=== PATIENT | female | born 1985 | race Caucasian/White ===

== ENCOUNTER 2018-03-22 13:48 | Inpatient (IN) | payer OTHER ==
[2018-03-22] MEDS: Lactated Ringer's 1,000 ML IV SCH ×2 (14:00→17:15)
[2018-03-22] MEDS ORDERED: Butorphanol Tartrate 1 MG/ML VIAL SLOW IVP SCH (15:00)
[2018-03-22 15:17] VITALS: BMI 56.3
[2018-03-22] MEDS ORDERED: Butorphanol Tartrate 1 MG/ML VIAL ONE (15:19)
[2018-03-22 15:26] LABS: Hemoglobin 13.4 g/dL (12.0-16.0); Mean Corpuscular HGB CONC 34.6 g/dL (32.0-36.0); Mean Corpuscular Hemoglobin 30.7 pg (27.0-31.0); Mean Corpuscular Volume 88.7 fL (78.0-98.0); Mean Platelet Volume 7.7 fL (7.4-10.4); Platelet Count 289 thou/uL (130-400); RBC Distribution Width 12.6 % (11.5-14.5); Red Blood Cell (RBC) Count 4.38 mill/uL (4.20-5.40); White Blood Cell (WBC) Count 14.5 thou/uL (4.8-10.8)
[2018-03-22] MEDS ORDERED: Fentanyl 4 mcg/Bup 0.1% Cadd 0 ML ONE (15:35)
[2018-03-22] MEDS ORDERED: Fentanyl 4 mcg/Bup 0.1% Cadd 100 ML ONE (15:37)
--- NOTE | 2018-03-22 16:44 | PDOC.EVN ---
Event Note - Event Note Event Note: Asked to place FSE by labor RN. Epidural just placed. SVE /-1. AROM performed, clear fluid seen. FSE placed w/o difficulty. Dr. Salazar notified.
[2018-03-22] MEDS ORDERED: Promethazine HCl 25 MG/ML VIAL IM PRN (16:55)
[2018-03-22] MEDS ORDERED: Ibuprofen 800 MG TAB PO PRN (16:55)
[2018-03-22] MEDS ORDERED: Acetaminophen 500 MG TAB PO PRN (16:55)
[2018-03-22] MEDS ORDERED: Docusate 100 MG CAP PO PRN (16:55)
[2018-03-22] MEDS ORDERED: Butorphanol Tartrate 1 MG/ML VIAL SLOW IVP PRN (16:55)
[2018-03-22] MEDS ORDERED: Ondansetron PF 4 MG/2 ML Vial IVP PRN ×2 (16:55→19:33)
[2018-03-22] MEDS ORDERED: Diphenoxylate HCl/Atropine Tablet PO PRN ×2 (16:55)
[2018-03-22] MEDS ORDERED: Misoprostol 200 MCG TAB PR PRN (16:55)
[2018-03-22] MEDS ORDERED: Lidocaine 1% (PF) 30 ML VIAL SC PRN (16:55)
[2018-03-22] MEDS ORDERED: NS / Oxytocin 40 units/1000ml 1,000 ML IV PRN (16:55)
[2018-03-22] MEDS ORDERED: HYDROcodone/Acetaminophen 5/325 mg Tablet PO PRN ×2 (16:55)
[2018-03-22] MEDS ORDERED: NS w/ Oxytocin 10 units 500 ML IV SCH (17:00)
[2018-03-22 17:40] LABS: HBSAg Index 0.22 S/CO (0-0.99); Hep B Surf Ag Non-Reactive S/CO (NonReactive); Syphilis Antibody Nonreactive (Nonreactive); Syphilis Antibody Index 0.03 S/CO (<1.00 Non-Reactive)
[2018-03-22] MEDS ORDERED: Lanolin Ointment 7 GM TUBE TOP PRN (19:33)
[2018-03-22] MEDS ORDERED: Acetaminophen/Codeine 30-300mg Tablet PO PRN (19:33)
[2018-03-22] MEDS ORDERED: Milk Of Magnesia 30 ML UDCUP PO PRN (19:33)
[2018-03-22] MEDS ORDERED: Zolpidem Tartrate 5 MG TAB PO PRN (19:33)
[2018-03-22] MEDS ORDERED: Benzocaine/Menthol 20-0.5% 60 ML CAN TOP PRN (19:33)
[2018-03-22] MEDS ORDERED: Misoprostol 200 MCG TAB VAG PRN (19:33)
[2018-03-22] MEDS ORDERED: Bisacodyl 10 MG SUPP PR PRN (19:33)
[2018-03-22] MEDS ORDERED: NS / Oxytocin 40 units/1000ml 1,000 ML IV SCH (19:45)
[2018-03-23] MEDS: Ibuprofen 800 MG TAB PO SCH ×4 (04:20→20:10)
[2018-03-23] MEDS: Docusate Calcium (SURFAK) 240 MG CAP PO SCH ×3 (04:21→20:11)
[2018-03-23 06:49] LABS: Hemoglobin 11.6 g/dL (12.0-16.0); Mean Corpuscular Hemoglobin 30.6 pg (27.0-31.0); Mean Platelet Volume 7.4 fL (7.4-10.4); Platelet Count 261 thou/uL (130-400); RBC Distribution Width 12.6 % (11.5-14.5); Red Blood Cell (RBC) Count 3.77 mill/uL (4.20-5.40); White Blood Cell (WBC) Count 13.8 thou/uL (4.8-10.8)
[2018-03-23] MEDS ORDERED: Adacel (T-DAP) 0.5 ML VIAL IM ONE (09:00)
[2018-03-23] MEDS: Ferrous Sulfate 325 MG TAB PO SCH ×2 (09:32→17:41)
[2018-03-23] MEDS: Prenatal Vitamin 1 TAB PO SCH (09:33)
[2018-03-23] MEDS: Acetaminophen/Codeine 30-300mg Tablet PO PRN (20:21)
[2018-03-24] MEDS: Acetaminophen/Codeine 30-300mg Tablet PO PRN ×2 (03:46→08:03)
[2018-03-24] MEDS: Ibuprofen 800 MG TAB PO SCH (03:47)
[2018-03-24] MEDS: Prenatal Vitamin 1 TAB PO SCH (08:02)
[2018-03-24] MEDS: Docusate Calcium (SURFAK) 240 MG CAP PO SCH (08:03)
[2018-03-24] MEDS: Ferrous Sulfate 325 MG TAB PO SCH (08:03)
[2018-03-24 08:18] VITALS: BP 87/50; TEMP 97.8
== END 2018-03-24 13:00 | disposition home or self-care (01) | DRG 807 ==
LOC: L&D/OP 13:48 → L&D 15:32 → 3SW 21:53
PROVIDERS: ADMIT Obstetrics & Gynecology; ATTEND Obstetrics & Gynecology
PROC: 10E0XZZ Delivery of Products of Conception, External Approach (ICD-10-PCS; principal; 2018-03-22)
PROC: 0KQM0ZZ Repair Perineum Muscle, Open Approach (ICD-10-PCS; 2018-03-22)
DX: O99.214 Obesity complicating childbirth (principal); Z37.0 Single live birth; E66.01 Morbid (severe) obesity due to excess calories; Z3A.39 39 weeks gestation of pregnancy; O76 Abnormality in fetal heart rate and rhythm complicating labor and delivery; O69.81X0 Labor and delivery complicated by cord around neck, without compression, not applicable or unspecified; O70.1 Second degree perineal laceration during delivery
CPT/HCPCS: 36415; 51702; 85027; 86780; 86850; 86900; 86901; 87340; 99285; J0595; J2001

== ENCOUNTER 2020-08-10 03:54 | Inpatient (IN) | payer BC ==
[2020-08-10 04:02] VITALS: BMI 30.8
[2020-08-10] MEDS ORDERED: HYDROcodone/Acetaminophen 5/325 mg Tablet PO PRN (04:28)
[2020-08-10] MEDS ORDERED: Ondansetron PF 4 MG/2 ML Vial IVP PRN (04:30)
[2020-08-10] MEDS ORDERED: Ondansetron ODT 4 MG TAB SL PRN (04:30)
[2020-08-10] MEDS ORDERED: Ondansetron ORAL SOLN. 4 MG/5 ML UDCUP PO PRN (05:02)
[2020-08-10] MEDS: Morphine 4 MG/ML VIAL SLOW IVP PRN ×4 (05:17→21:00)
[2020-08-10] MEDS: Sodium Chloride 0.9% 1,000 ML IV SCH ×4 (05:27→15:55)
[2020-08-10 08:39] LABS: #Eosinphils 0.1 thou/uL (0.0-0.7); #Lymphocytes 1.2 thou/uL (1.20-3.40); #Monocytes 0.3 thou/uL (0.11-0.59); #Neutrophils 3.4 thou/uL (1.40-6.50); %Basophils 0.4 % (0.0-1.0); %Eosinophils 2.2 % (0.0-10.0); %Lymphocytes 24.2 % (21.0-51.0); %Monocytes 6.7 % (0.0-10.0); %Neutrophils 66.6 % (42.0-75.0); Hemoglobin 13.4 g/dL (12.0-16.0); Mean Corpuscular Hemoglobin 32.9 pg (27.0-31.0); Mean Corpuscular Volume 99.7 fL (78.0-98.0); Mean Platelet Volume 6.9 fL (7.4-10.4); Platelet Count 231 thou/uL (130-400); RBC Distribution Width 11.5 % (11.5-14.5); Red Blood Cell (RBC) Count 4.07 mill/uL (4.20-5.40); White Blood Cell (WBC) Count 5.1 thou/uL (4.8-10.8)
[2020-08-10 08:56] LABS: Lactic Acid 0.6 mmol/L (0.5-2.2)
[2020-08-10] MEDS: Ondansetron PF 4 MG/2 ML Vial IVP PRN ×3 (08:56→21:00)
[2020-08-10] MEDS: HYDROcodone/Acetaminophen 5/325 mg Tablet PO PRN ×2 (08:56→15:53)
[2020-08-10 08:58] LABS: Anion Gap 14 mmol/L (10-20); BUN (Urea Nitrogen) 8 mg/dL (7.0-18.7); Calc. Creatinine Clearance 216 mL/min (70-130); Calcium 8.6 mg/dL (7.8-10.44); Carbon Dioxide 21 mmol/L (22-29); Chloride 106 mmol/L (98-107); Glucose 77 mg/dL (70-105); Potassium 3.5 mmol/L (3.5-5.1); Sodium 137 mmol/L (136-145)
[2020-08-10] MEDS ORDERED: Enoxaparin Sodium 40 MG/0.4 ML SYRINGE SC SCH (09:00)
[2020-08-10 09:12] LABS: SARS-CoV-2 PCR by NAA Not Detected (NotDetected)
[2020-08-10] MEDS ORDERED: Iopamidol-370 76% 500 ML 1 ML ONE (10:16)
[2020-08-10 14:28] LABS: Bacteria/HPF None Seen HPF (None Seen); Bilirubin Negative (Negative); Blood, Urine Negative (Negative); Clarity Clear (Clear); Glucose, Urine (Dipstick) Normal (Negative); Ketone, Urine Trace mg/dL (Negative); Leukocyte 250 Leu/uL (Negative); Nitrite Negative (Negative); Protein, Urine (Dipstick) Negative (Neg-Trace); RBC/HPF 0-3 HPF (0-3); Specific Gravity, Urine 1.012 (1.002-1.036); Urobilinogen 12 mg/dL (Less than 2)
[2020-08-10 19:00] LABS: BHCG - Serum Negative (NEGATIVE); Pregs Control Background? CLEAR/WHITE (CLR/WHITE); Pregs Control Bar Appear? YES (CONTROL BAR)
[2020-08-10 20:39] LABS: INR-International Normal Ratio 1.1; PTT 31.8 sec (22.9-36.1)
[2020-08-10 20:40] LABS: D-Dimer Test 0.71 *mcg/mL (0.27-0.43)
[2020-08-10] MEDS: Enoxaparin Sodium 100 MG/ML SYRINGE SC SCH (21:12)
[2020-08-11] MEDS: Morphine 4 MG/ML VIAL SLOW IVP PRN ×5 (01:36→20:13)
[2020-08-11] MEDS ORDERED: Promethazine HCl 25 MG in Sodium Chloride 0.9% 50 ML IVPB SCH (02:00)
[2020-08-11] MEDS: Sodium Chloride 0.9% 1,000 ML IV SCH ×2 (04:28→12:48)
[2020-08-11] MEDS: Ondansetron PF 4 MG/2 ML Vial IVP PRN (06:03)
[2020-08-11 06:07] LABS: #Eosinphils 0.1 thou/uL (0.0-0.7); #Monocytes 0.2 thou/uL (0.11-0.59); #Neutrophils 2.7 thou/uL (1.40-6.50); %Basophils 0.5 % (0.0-1.0); %Eosinophils 3.2 % (0.0-10.0); %Lymphocytes 24.1 % (21.0-51.0); %Monocytes 4.4 % (0.0-10.0); %Neutrophils 67.9 % (42.0-75.0); Hemoglobin 12.8 g/dL (12.0-16.0); Mean Corpuscular HGB CONC 31.8 g/dL (32.0-36.0); Mean Corpuscular Hemoglobin 31.7 pg (27.0-31.0); Mean Corpuscular Volume 99.9 fL (78.0-98.0); Mean Platelet Volume 7.2 fL (7.4-10.4); Platelet Count 184 thou/uL (130-400); RBC Distribution Width 11.4 % (11.5-14.5); Red Blood Cell (RBC) Count 4.02 mill/uL (4.20-5.40)
[2020-08-11 06:36] LABS: Anion Gap 14 mmol/L (10-20); BUN (Urea Nitrogen) 6 mg/dL (7.0-18.7); Calc. Creatinine Clearance 238 mL/min (70-130); Calcium 8.6 mg/dL (7.8-10.44); Carbon Dioxide 21 mmol/L (22-29); Chloride 106 mmol/L (98-107); Glucose 66 mg/dL (70-105); Magnesium 1.9 mg/dL (1.6-2.6); Potassium 4.1 mmol/L (3.5-5.1); Sodium 137 mmol/L (136-145)
[2020-08-11 06:37] LABS: ALT (SGPT) 238 U/L (8-55); AST (SGOT) 242 U/L (5-34); Albumin 3.4 g/dL (3.5-5.0); Alkaline Phosphatase 241 U/L (40-110); Bilirubin, Direct 0.8 mg/dL (0.1-0.3); Bilirubin, Total 1.2 mg/dL (0.2-1.2); Protein, Total 5.7 g/dL (6.0-8.3)
[2020-08-11] MEDS: Enoxaparin Sodium 100 MG/ML SYRINGE SC SCH ×2 (09:02→20:11)
[2020-08-11 11:26] LABS: HBCM Index 0.08 S/CO (0-0.79); HBSAg Index 0.23 S/CO (0-0.99); Hep A IgM AB Non-Reactive (NonReactive); Hep A IgM S/CO 0.19 S/CO (0-0.79); Hep B Surf Ag Non-Reactive S/CO (NonReactive); Hep C IgG Ab Non-Reactive (NonReactive); Hep C Index 0.15 S/CO (0-0.79); Hepatitis B Core IgM Abs Non-Reactive (NonReactive)
[2020-08-12] MEDS: Morphine 4 MG/ML VIAL SLOW IVP PRN (01:26)
[2020-08-12] MEDS: Ondansetron PF 4 MG/2 ML Vial IVP PRN ×2 (01:36→08:51)
[2020-08-12] MEDS ORDERED: Ketorolac Tromethamine 30 MG/ML VIAL IVP PRN (03:37)
[2020-08-12] MEDS ORDERED: Morphine 4 MG/ML VIAL SLOW IVP PRN (03:37)
[2020-08-12] MEDS ORDERED: Fentanyl 100 MCG/2 ML VIAL SLOW IVP SCH (03:45)
[2020-08-12 06:47] LABS: #Basophils 0.1 thou/uL (0.0-0.2); #Eosinphils 0.2 thou/uL (0.0-0.7); #Lymphocytes 1.5 thou/uL (1.20-3.40); #Monocytes 0.3 thou/uL (0.11-0.59); #Neutrophils 3.7 thou/uL (1.40-6.50); %Basophils 1.2 % (0.0-1.0); %Eosinophils 3.9 % (0.0-10.0); %Lymphocytes 25.5 % (21.0-51.0); %Monocytes 5.2 % (0.0-10.0); %Neutrophils 64.2 % (42.0-75.0); Hemoglobin 14.1 g/dL (12.0-16.0); Mean Corpuscular HGB CONC 32.8 g/dL (32.0-36.0); Mean Corpuscular Hemoglobin 32.4 pg (27.0-31.0); Mean Corpuscular Volume 98.6 fL (78.0-98.0); Mean Platelet Volume 6.9 fL (7.4-10.4); Platelet Count 247 thou/uL (130-400); RBC Distribution Width 11.4 % (11.5-14.5); Red Blood Cell (RBC) Count 4.35 mill/uL (4.20-5.40); White Blood Cell (WBC) Count 5.8 thou/uL (4.8-10.8)
[2020-08-12 07:07] LABS: Anion Gap 11 mmol/L (10-20); BUN (Urea Nitrogen) 5 mg/dL (7.0-18.7); Calc. Creatinine Clearance 197 mL/min (70-130); Calcium 9.1 mg/dL (7.8-10.44); Carbon Dioxide 27 mmol/L (22-29); Chloride 102 mmol/L (98-107); Glucose 72 mg/dL (70-105); Iron 58 ug/dL (50-170); Iron Binding Capacity, Total 275 mcg/dL (265-497); Potassium 3.9 mmol/L (3.5-5.1); Sodium 136 mmol/L (136-145)
[2020-08-12 07:27] LABS: Vitamin D, 25 Hydroxy 18.3 ng/ml (> 30.0)
[2020-08-12 07:32] LABS: Ferritin 143.97 ng/mL (10-291)
[2020-08-12] MEDS: Sodium Chloride 0.9% 1,000 ML IV SCH ×2 (08:45→14:24)
[2020-08-12] MEDS: Enoxaparin Sodium 100 MG/ML SYRINGE SC SCH ×2 (08:51→21:42)
[2020-08-12 10:28] LABS: ALT (SGPT) 190 U/L (8-55); AST (SGOT) 117 U/L (5-34); Alkaline Phosphatase 236 U/L (40-110); Bilirubin, Direct 0.5 mg/dL (0.1-0.3); Bilirubin, Total 0.8 mg/dL (0.2-1.2); Protein, Total 6.9 g/dL (6.0-8.3)
[2020-08-12] MEDS ORDERED: Acetaminophen 325 MG TAB PO PRN (10:42)
[2020-08-12 14:27] LABS: Cardiolipin IgG Ab 1.6 GPL-U/mL (<10 Negative); EliA APS New Method **** NEW METHOD ****
[2020-08-12 14:52] LABS: HEX PHOS LA Tube 1 44.1 SEC; HEX PHOS LA Tube 2 42.3 SEC; Hexagonal Phospholipid Neut 1.8 SEC (0-8.0)
[2020-08-13] MEDS: Sodium Chloride 0.9% 1,000 ML IV SCH ×3 (04:02→23:26)
[2020-08-13 07:18] LABS: #Eosinphils 0.2 thou/uL (0.0-0.7); #Lymphocytes 2.1 thou/uL (1.20-3.40); #Monocytes 0.3 thou/uL (0.11-0.59); #Neutrophils 1.6 thou/uL (1.40-6.50); %Basophils 0.8 % (0.0-1.0); %Eosinophils 5.7 % (0.0-10.0); %Lymphocytes 49.4 % (21.0-51.0); %Monocytes 6.9 % (0.0-10.0); %Neutrophils 37.3 % (42.0-75.0); Hemoglobin 12.9 g/dL (12.0-16.0); Mean Corpuscular HGB CONC 33.3 g/dL (32.0-36.0); Mean Corpuscular Hemoglobin 32.8 pg (27.0-31.0); Mean Corpuscular Volume 98.7 fL (78.0-98.0); Platelet Count 224 thou/uL (130-400); RBC Distribution Width 11.3 % (11.5-14.5); Red Blood Cell (RBC) Count 3.92 mill/uL (4.20-5.40); White Blood Cell (WBC) Count 4.2 thou/uL (4.8-10.8)
[2020-08-13 07:39] LABS: ALT (SGPT) 111 U/L (8-55); AST (SGOT) 47 U/L (5-34); Albumin 3.2 g/dL (3.5-5.0); Alkaline Phosphatase 176 U/L (40-110); Anion Gap 9 mmol/L (10-20); BUN (Urea Nitrogen) 4 mg/dL (7.0-18.7); Bilirubin, Total 0.7 mg/dL (0.2-1.2); Calc. Creatinine Clearance 224 mL/min (70-130); Calcium 8.7 mg/dL (7.8-10.44); Carbon Dioxide 27 mmol/L (22-29); Chloride 105 mmol/L (98-107); Globulin 2.3 g/dL (2.4-3.5); Glucose 78 mg/dL (70-105); Potassium 3.3 mmol/L (3.5-5.1); Protein, Total 5.5 g/dL (6.0-8.3); Sodium 138 mmol/L (136-145)
[2020-08-13] MEDS: Enoxaparin Sodium 100 MG/ML SYRINGE SC SCH (08:40)
[2020-08-13 10:21] LABS: Protein C Activity 88 % (78-152)
[2020-08-13 10:22] LABS: Factor VIII Test 143.8 % ACTIVE (56-157)
[2020-08-13] MEDS ORDERED: Polyethylene Glycol 3350 17 GM Packet PO PRN (13:58)
[2020-08-13] MEDS ORDERED: HYDROcodone/Acetaminophen 5/325 mg Tablet PO PRN (13:58)
[2020-08-13] MEDS: Senokot S 8.6-50 MG TAB PO SCH (20:50)
[2020-08-13] MEDS: Apixaban 5 MG TAB PO SCH (20:50)
[2020-08-14 06:42] LABS: #Eosinphils 0.3 thou/uL (0.0-0.7); #Lymphocytes 1.8 thou/uL (1.20-3.40); #Monocytes 0.3 thou/uL (0.11-0.59); #Neutrophils 2.1 thou/uL (1.40-6.50); %Basophils 1.1 % (0.0-1.0); %Eosinophils 6.3 % (0.0-10.0); %Lymphocytes 39.9 % (21.0-51.0); %Monocytes 7.1 % (0.0-10.0); %Neutrophils 45.6 % (42.0-75.0); Hemoglobin 12.7 g/dL (12.0-16.0); Mean Corpuscular Hemoglobin 32.5 pg (27.0-31.0); Mean Corpuscular Volume 98.7 fL (78.0-98.0); Mean Platelet Volume 7.3 fL (7.4-10.4); Platelet Count 212 thou/uL (130-400); RBC Distribution Width 11.4 % (11.5-14.5); White Blood Cell (WBC) Count 4.5 thou/uL (4.8-10.8)
[2020-08-14] MEDS: Senokot S 8.6-50 MG TAB PO SCH (08:16)
[2020-08-14] MEDS: Apixaban 5 MG TAB PO SCH (08:16)
[2020-08-14] MEDS: Sodium Chloride 0.9% 1,000 ML IV SCH (08:17)
[2020-08-14] MEDS: Ondansetron PF 4 MG/2 ML Vial IVP PRN (08:19)
[2020-08-14 08:40] VITALS: BP 108/59; TEMP 97.9
[2020-08-22 19:36] LABS: Activated Protein C Resistance 2.8 ratio (.)
== END 2020-08-14 12:22 | disposition home or self-care (01) | DRG 395 ==
LOC: T4-A 03:54
PROVIDERS: ADMIT Student in an Organized Health Care Education/Training Program; ATTEND Internal Medicine
DX: K55.059 Acute (reversible) ischemia of intestine, part and extent unspecified (principal); E66.9 Obesity, unspecified; Z98.84 Bariatric surgery status; Z83.3 Family history of diabetes mellitus; Z68.30 Body mass index [BMI] 30.0-30.9, adult; Z90.49 Acquired absence of other specified parts of digestive tract; Z87.891 Personal history of nicotine dependence; Z80.0 Family history of malignant neoplasm of digestive organs; R79.89 Other specified abnormal findings of blood chemistry; K75.81 Nonalcoholic steatohepatitis (NASH)
CPT/HCPCS: 36415; 74177; 76705; 80048; 80053; 80074; 80076; 81015; 82306; 82607; 82728; 82746; 83090; 83540; 83550; 83605; 83690; 83735; 84425; 84703; 85025; 85240; 85300; 85303; 85305; 85307; 85379; 85598; 85610; 85730; 86147; 87635; J1650; J2270; J2405; J2550; J3010; Q9967; U0003; U0005

== ENCOUNTER 2020-08-19 22:11 | Inpatient (IN) | payer BC ==
[2020-08-19 23:13] LABS: #Basophils 0.1 thou/uL (0.0-0.2); #Eosinphils 0.3 thou/uL (0.0-0.7); #Lymphocytes 3.1 thou/uL (1.20-3.40); #Monocytes 0.5 thou/uL (0.11-0.59); #Neutrophils 4.2 thou/uL (1.40-6.50); %Basophils 1.2 % (0.0-1.0); %Eosinophils 3.9 % (0.0-10.0); %Monocytes 5.6 % (0.0-10.0); %Neutrophils 51.3 % (42.0-75.0); Hemoglobin 12.7 g/dL (12.0-16.0); Mean Corpuscular HGB CONC 33.1 g/dL (32.0-36.0); Mean Corpuscular Hemoglobin 32.5 pg (27.0-31.0); Mean Corpuscular Volume 98.1 fL (78.0-98.0); Platelet Count 292 thou/uL (130-400); RBC Distribution Width 11.8 % (11.5-14.5); Red Blood Cell (RBC) Count 3.92 mill/uL (4.20-5.40); White Blood Cell (WBC) Count 8.2 thou/uL (4.8-10.8)
[2020-08-19 23:19] LABS: INR-International Normal Ratio 1.1; PTT 34.2 sec (22.9-36.1); Prothrombin Time 14.7 sec (12.0-14.7)
[2020-08-19] MEDS ORDERED: Ketorolac Tromethamine 30 MG/ML VIAL ONE (23:37)
[2020-08-19] MEDS ORDERED: Ondansetron PF 4 MG/2 ML Vial ONE (23:37)
[2020-08-19 23:38] LABS: ALT (SGPT) 29 U/L (8-55); AST (SGOT) 17 U/L (5-34); Albumin 3.9 g/dL (3.5-5.0); Alkaline Phosphatase 110 U/L (40-110); Anion Gap 11 mmol/L (10-20); BUN (Urea Nitrogen) 18 mg/dL (7.0-18.7); Bilirubin, Total 0.4 mg/dL (0.2-1.2); Calc. Creatinine Clearance 0 mL/min (70-130); Calcium 9.1 mg/dL (7.8-10.44); Carbon Dioxide 28 mmol/L (22-29); Chloride 104 mmol/L (98-107); Globulin 2.6 g/dL (2.4-3.5); Glucose 88 mg/dL (70-105); Potassium 3.2 mmol/L (3.5-5.1); Protein, Total 6.5 g/dL (6.0-8.3); Sodium 140 mmol/L (136-145)
[2020-08-19 23:41] LABS: BHCG - Serum Negative (NEGATIVE); Pregs Control Bar Appear? YES (CONTROL BAR)
[2020-08-19 23:42] LABS: Pregs Control Background? CLEAR/WHITE (CLR/WHITE)
[2020-08-20] MEDS ORDERED: Acetaminophen 325 MG TAB PO PRN (01:55)
[2020-08-20] MEDS ORDERED: Morphine 4 MG/ML VIAL SLOW IVP PRN (01:57)
[2020-08-20] MEDS ORDERED: Promethazine HCl 25 MG/ML VIAL ONE (03:18)
[2020-08-20] MEDS ORDERED: Promethazine HCl 25 MG in Sodium Chloride 0.9% 50 ML IVPB SCH (04:00)
[2020-08-20] MEDS ORDERED: Fentanyl 100 MCG/2 ML VIAL ONE ×2 (04:26→10:13)
[2020-08-20] MEDS ORDERED: Potassium Chloride 20 MEQ/100 ML PREMIX BAG ONE (04:30)
[2020-08-20] MEDS: Potassium Chloride 20 MEQ in Premix Bag 1 BAG IVPB SCH ×2 (04:35→06:20)
[2020-08-20 04:42] LABS: SARS-CoV-2 PCR by NAA Not Detected (NotDetected)
[2020-08-20] MEDS ORDERED: Fentanyl 100 MCG/2 ML VIAL SLOW IVP SCH ×2 (05:30→09:30)
[2020-08-20 07:49] LABS: #Eosinphils 0.4 thou/uL (0.0-0.7); #Lymphocytes 2.5 thou/uL (1.20-3.40); #Monocytes 0.4 thou/uL (0.11-0.59); #Neutrophils 3.5 thou/uL (1.40-6.50); %Basophils 0.5 % (0.0-1.0); %Eosinophils 5.8 % (0.0-10.0); %Lymphocytes 37.3 % (21.0-51.0); %Monocytes 5.5 % (0.0-10.0); %Neutrophils 50.9 % (42.0-75.0); Hemoglobin 11.3 g/dL (12.0-16.0); Mean Corpuscular HGB CONC 33.1 g/dL (32.0-36.0); Mean Corpuscular Hemoglobin 32.3 pg (27.0-31.0); Mean Corpuscular Volume 97.7 fL (78.0-98.0); Mean Platelet Volume 7.1 fL (7.4-10.4); Platelet Count 245 thou/uL (130-400); RBC Distribution Width 11.8 % (11.5-14.5); Red Blood Cell (RBC) Count 3.51 mill/uL (4.20-5.40); White Blood Cell (WBC) Count 6.8 thou/uL (4.8-10.8)
[2020-08-20 08:02] LABS: Anion Gap 11 mmol/L (10-20); BUN (Urea Nitrogen) 17 mg/dL (7.0-18.7); Calc. Creatinine Clearance 0 mL/min (70-130); Calcium 8.8 mg/dL (7.8-10.44); Carbon Dioxide 25 mmol/L (22-29); Chloride 106 mmol/L (98-107); Glucose 83 mg/dL (70-105); Magnesium 1.9 mg/dL (1.6-2.6); Potassium 3.5 mmol/L (3.5-5.1); Sodium 138 mmol/L (136-145)
[2020-08-20] MEDS ORDERED: Pantoprazole 40 MG VIAL ONE (08:54)
[2020-08-20] MEDS ORDERED: Acetaminophen 325 MG TAB ONE ×2 (08:54→08:55)
[2020-08-20] MEDS ORDERED: Pantoprazole 40 MG VIAL IVP SCH ×2 (09:00→14:00)
[2020-08-20] MEDS ORDERED: Lidocaine 1% PF 5 ML VIAL ONE (12:42)
[2020-08-20] MEDS ORDERED: Acetaminophen 500 MG TAB ONE (13:50)
[2020-08-20] MEDS ORDERED: Acetaminophen 500 MG TAB PO PRN (13:56)
[2020-08-20 14:40] VITALS: BMI 29.5
[2020-08-20 15:53] LABS: Hemoglobin 11.3 g/dL (12.0-16.0)
[2020-08-20] MEDS ORDERED: GoLYTELY 4,000 ml Bottle PO SCH (16:00)
[2020-08-20 18:10] LABS: Hemoglobin 11.7 g/dL (12.0-16.0)
[2020-08-20] MEDS: Pantoprazole 40 MG VIAL IVP SCH (21:05)
[2020-08-21 00:09] LABS: Hemoglobin 11.9 g/dL (12.0-16.0)
[2020-08-21] MEDS: Pantoprazole 40 MG VIAL IVP SCH ×2 (09:33→20:41)
[2020-08-21] MEDS ORDERED: GoLYTELY 4,000 ml Bottle PO SCH (13:30)
[2020-08-22] MEDS: Pantoprazole 40 MG VIAL IVP SCH ×2 (08:32→20:11)
[2020-08-22] MEDS ORDERED: Lidocaine 1% PF 5 ML VIAL ONE (11:05)
[2020-08-22] MEDS ORDERED: Ondansetron PF 4 MG/2 ML Vial ONE ×2 (11:05→11:33)
[2020-08-22] MEDS ORDERED: PROPOFOL 200 MG/20 ML VIAL ONE (11:05)
[2020-08-22] MEDS ORDERED: ePHEDrine Sulfate 50 MG/10 ML VIAL ONE (11:05)
[2020-08-22] MEDS ORDERED: Promethazine HCl 25 MG/ML VIAL ONE (11:35)
[2020-08-22] MEDS ORDERED: Promethazine HCl 25 MG/ML VIAL SLOW IVP PRN (11:47)
[2020-08-22] MEDS ORDERED: Promethazine HCl 25 MG/ML VIAL IM PRN (11:47)
[2020-08-22] MEDS ORDERED: Fentanyl 100 MCG/2 ML VIAL ONE (11:47)
[2020-08-22] MEDS ORDERED: Ondansetron HCl/PF 4 MG/2 ML Vial IVP PRN (11:47)
[2020-08-22] MEDS: Fentanyl 100 MCG/2 ML VIAL SLOW IVP PRN ×3 (13:46→20:12)
[2020-08-22] MEDS: Apixaban 5 MG TAB PO SCH (20:11)
[2020-08-22] MEDS ORDERED: Simethicone Chewable 80 MG TAB PO PRN (22:30)
[2020-08-23 06:26] LABS: Hemoglobin 11.2 g/dL (12.0-16.0); Platelet Count 240 thou/uL (130-400)
[2020-08-23 06:47] LABS: Calc. Creatinine Clearance 199 mL/min (70-130)
[2020-08-23 07:13] VITALS: BP 99/65; TEMP 98.7
[2020-08-23] MEDS: Pantoprazole 40 MG VIAL IVP SCH ×2 (08:30→08:46)
[2020-08-23] MEDS: Apixaban 5 MG TAB PO SCH (08:30)
== END 2020-08-23 11:05 | disposition home or self-care (01) | DRG 377 ==
LOC: ERS 22:11 → ERHOLD 08-20 01:11 → INTOOBSV 08-20 01:11 → OBSVTOIN 08-20 01:11 → T4-A 08-20 13:57
PROVIDERS: ADMIT Internal Medicine; ATTEND Internal Medicine
PROC: 0DJ08ZZ Inspection of Upper Intestinal Tract, Via Natural or Artificial Opening Endoscopic (ICD-10-PCS; principal; 2020-08-20)
PROC: 0DJD8ZZ Inspection of Lower Intestinal Tract, Via Natural or Artificial Opening Endoscopic (ICD-10-PCS; 2020-08-22)
DX: K92.1 Melena (principal); K55.059 Acute (reversible) ischemia of intestine, part and extent unspecified; K56.7 Ileus, unspecified; D68.32 Hemorrhagic disorder due to extrinsic circulating anticoagulants; K21.9 Gastro-esophageal reflux disease without esophagitis; Z20.822 Contact with and (suspected) exposure to COVID-19; T45.515A Adverse effect of anticoagulants, initial encounter; E87.6 Hypokalemia; Z79.899 Other long term (current) drug therapy; Z79.01 Long term (current) use of anticoagulants; Z90.49 Acquired absence of other specified parts of digestive tract; Z98.84 Bariatric surgery status; Z90.89 Acquired absence of other organs; Z87.891 Personal history of nicotine dependence
CPT/HCPCS: 36415; 74018; 74177; 80048; 80053; 82565; 83735; 84703; 85014; 85018; 85025; 85049; 85610; 85730; 86850; 86900; 86901; 87635; 94760; 96374; 96375; 96376; C9113; G0378; J1885; J2405; J2550; J2704; J3010; J3480; U0003; U0005